=== PATIENT | female | born 1970 | race Two or more races ===

== ENCOUNTER 2017-02-28 12:47 | Emergency (ER) | payer OTHER ==
[~2017-02-28] VITALS: Ht 157.5 cm; Wt 97.5 kg
[2017-02-28 13:40] VITALS: BP 154/88
[2017-02-28] MEDS ORDERED: Morphine Sulfate 4mg/ml Inj IVP ONE (14:00)
[2017-02-28 14:03] LABS: BASOPHILS % (AUTO) 0.8 % (0.0-2.0); EOSINOPHILS % (AUTO) 0.3 % (0.0-3.0); HEMATOCRIT 34.6 % (37.0-47.0); HEMOGLOBIN 10.4 G/DL (12.0-16.0); LYMPHOCYTES % (AUTO) 10.8 % (20.0-45.0); MEAN CORPUSCULAR VOLUME 77 FL (80-99); NEUTROPHILS % (AUTO) 80.1 % (45.0-75.0); PLATELET COUNT 242 K/UL (150-450); RED BLOOD COUNT 4.49 M/UL (4.20-5.40); RED CELL DISTRIBUTION WIDTH 14.9 % (11.6-14.8); WHITE BLOOD COUNT 10.8 K/UL (4.8-10.8)
--- NOTE | 2017-02-28 14:09 | Emergency Room Report ---
History of Present Illness General Chief Complaint: Abdominal Pain Source: Patient, EMS Present Illness HPI Patient presents with severe right upper quadrant pain. This began at 1145 this morning. She states it radiated towards her back. She had vomiting. It was bitter what she was vomiting up. She did not notice any blood. She had this once many weeks ago but did not see a doctor. She was treated with morphine in the field and the pain went from a 10 down to a 4 at this time. She still feels nauseated. She denies any fevers, chest pain, headache, dysuria diarrhea. She ate breakfast this morning which a sandwich and other juices. No fevers, cough, sore throat, dyspnea, rashes, headache, joint pain, dysuria. 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 Now: No Reviewed Nursing Documentation: PMH: Agreed, PSxH: Agreed Nursing Documentation-PMH Past Medical History: No Stated History Review of Systems All Other Systems: negative except mentioned in HPI Physical Exam Vital Signs Date Time Temp Pulse Resp B/P (MAP) Pulse Ox O2 Delivery O2 Flow Rate FiO2 02/28/17 12:33 98.1 75 16 166/96 97 Room Air Sp02 EP Interpretation: reviewed, normal General Appearance: well appearing, no apparent distress, GCS 15 Head: normocephalic Eyes: bilateral eye normal inspection, bilateral eye PERRL, bilateral eye EOMI ENT: moist mucus membranes Neck: supple Respiratory: lungs clear, normal breath sounds Cardiovascular #1: regular rate, rhythm Cardiovascular #2: 2+ radial (R) Gastrointestinal: normal inspection, normal bowel sounds, no mass, non- distended, no rebound, tenderness - Right upper quadrant Musculoskeletal: back normal, gait/station normal, normal range of motion Neurologic: alert, oriented x3, grossly normal Psychiatric: mood/affect normal - anxious due to pain Skin: normal inspection, warm/dry Medical Decision Making Diagnostic Impression: Primary Impression: Biliary colic Additional Impressions: Gall stones Pyuria ER Course Patient presents with severe right upper quadrant pain and vomiting. The character suggest biliary colic. Differential includes peptic ulcer disease, gastritis, gallstones, pancreatitis amongst others. She was evaluated with EKG , chest x-ray and ultrasound of. Labs will be performed. She'll also be given morphine Zofran and Pepcid. EKG without injury. CXR normal. Labs with normal WBC. Slightly elevated ALT and Alk phos. Bili normal. Pyuria. Rocephin given for pyuria. Improved with no pain. Abdomen soft and no guarding. Discussed need for eval and referral by PMD to surgeon. Patient stable for outpatient observation and treatment. Laboratory Tests Test 02/28/17 13:47 02/28/17 14:11 White Blood Count 10.8 K/UL (4.8-10.8) Red Blood Count 4.49 M/UL (4.20-5.40) Hemoglobin 10.4 G/DL (12.0-16.0) L Hematocrit 34.6 % (37.0-47.0) L Mean Corpuscular Volume 77 FL (80-99) L Mean Corpuscular Hemoglobin 23.2 PG (27.0-31.0) L Mean Corpuscular Hemoglobin Concent 30.1 G/DL (32.0-36.0) L Red Cell Distribution Width 14.9 % (11.6-14.8) H Platelet Count 242 K/UL (150-450) Mean Platelet Volume 10.4 FL (6.5-10.1) H Neutrophils (%) (Auto) 80.1 % (45.0-75.0) H Lymphocytes (%) (Auto) 10.8 % (20.0-45.0) L Monocytes (%) (Auto) 8.0 % (1.0-10.0) Eosinophils (%) (Auto) 0.3 % (0.0-3.0) Basophils (%) (Auto) 0.8 % (0.0-2.0) Sodium Level 139 MMOL/L (136-145) Potassium Level 4.0 MMOL/L (3.5-5.1) Chloride Level 103 MMOL/L (98-107) Carbon Dioxide Level 27 MMOL/L (21-32) Anion Gap 9 mmol/L (5-15) Blood Urea Nitrogen 13 mg/dL (7-18) Creatinine 0.6 MG/DL (0.55-1.30) Estimate Glomerular Filtration Rate > 60 mL/min (>60) Glucose Level 99 MG/DL (74-106) Calcium Level 7.8 MG/DL (8.5-10.1) L Total Bilirubin 0.4 MG/DL (0.2-1.0) Aspartate Amino Transferase (AST) 157 U/L (15-37) H Alanine Aminotransferase (ALT) 74 U/L (12-78) Alkaline Phosphatase 118 U/L (46-116) H Total Protein 8.2 G/DL (6.4-8.2) Albumin 3.3 G/DL (3.4-5.0) L Globulin 4.9 g/dL Albumin/Globulin Ratio 0.7 (1.0-2.7) L Lipase 201 U/L (73-393) Urine Color Yellow Urine Appearance Clear Urine pH 7 (4.5-8.0) Urine Specific [place] 1.010 (1.005-1.035) Urine Protein 2+ (NEGATIVE) H Urine Glucose (UA) Negative (NEGATIVE) Urine Ketones Negative (NEGATIVE) Urine Occult Blood Negative (NEGATIVE) Urine Nitrite Negative (NEGATIVE) Urine Bilirubin Negative (NEGATIVE) Urine Urobilinogen 1 MG/DL (0.0-1.0) H Urine Leukocyte Esterase 2+ (NEGATIVE) H Urine RBC 0-2 /HPF (0 - 2) Urine WBC 10-15 /HPF (0 - 2) H Urine Squamous Epithelial Cells Few /LPF (NONE/OCC) Urine Bacteria Few /HPF (NONE) Urine Mucus Few /LPF (NONE/OCC) H EKG Diagnostic Results Rate: normal Rhythm: NSR ST Segments: no acute changes Rhythm Strip Diag. Results EP Interpretation: yes Rhythm: NSR, no PVC's, no ectopy CT/MRI/US Diagnostic Results CT/MRI/US Diagnostic Results : Imaging Test Ordered: u/s abd Impression Multiple gall stones. Gallbladder wall 4 mm, no pericholecystic fluid. CBD 6.8 mm. Neg Meadows's. Last Vital Signs Date Time Temp Pulse Resp B/P (MAP) Pulse Ox O2 Delivery O2 Flow Rate FiO2 02/28/17 17:35 98.1 62 17 168/93 99 Room Air Status: improved Disposition: HOME, SELF-CARE Condition: Improved Scripts Ondansetron Odt* (ZOFRAN ODT*) 4 Mg Tab.rapdis 4 MG ORAL Q8H Y for Nausea & Vomiting, #6 TAB 1 Refill Prov: Graham Hector M.D. 02/28/17 Tramadol Hcl* (ULTRAM*) 50 Mg Tablet 50 MG ORAL Q6H Y for For Pain, #16 TAB 0 Refills Prov: Graham Hector M.D. 02/28/17 Graham Hector M.D. Feb 28, 2017 14:08
[2017-02-28 14:14] LABS: ANION GAP 9 mmol/L (5-15); BLOOD UREA NITROGEN 13 mg/dL (7-18); CALCIUM 7.8 MG/DL (8.5-10.1); CARBON DIOXIDE 27 MMOL/L (21-32); CHLORIDE 103 MMOL/L (98-107); CREATININE 0.6 MG/DL (0.55-1.30); SODIUM 139 MMOL/L (136-145)
[2017-02-28 14:19] LABS: ALANINE AMINOTRANSFERASE 74 U/L (12-78); ALBUMIN 3.3 G/DL (3.4-5.0); ALBUMIN/GLOBULIN RATIO 0.7 (1.0-2.7); ALKALINE PHOSPHATASE 118 U/L (46-116); ASPARTATE AMINO TRANSFERASE 157 U/L (15-37); BILIRUBIN,TOTAL 0.4 MG/DL (0.2-1.0)
[2017-02-28 14:32] LABS: APPEARANCE,URINE CLEAR; BILIRUBIN, URINE NEGATIVE (NEGATIVE); GLUCOSE, URINE (UA) NEGATIVE (NEGATIVE); KETONES,URINE NEGATIVE (NEGATIVE); LEUKOCYTE ESTERASE ,URINE 2+ (NEGATIVE); NITRITE,URINE NEGATIVE (NEGATIVE); PH,URINE 7 (4.5-8.0); PROTEIN,URINE 2+ (NEGATIVE); UROBILINOGEN,URINE 1 MG/DL (0.0-1.0)
[2017-02-28 14:33] LABS: COLOR,URINE YELLOW
[2017-02-28] MEDS ORDERED: cefTRIAXone 1 GM in NS 55 ML IVPB ONE (15:15)
[2017-02-28 16:58] VITALS: BP 173/97
[2017-02-28] MEDS ORDERED: TRAMADOL HCL50 MG ORAL (17:22)
[2017-02-28] MEDS ORDERED: ZOFRAN ODT4 MG ORAL (17:22)
[2017-02-28 17:35] VITALS: BP 168/93
--- NOTE | 2017-03-01 12:01 | Diagnostic Imaging Report ---
Indication: Right upper quadrant pain Technique: ULT ABDOMINAL/COMPLE Comparison: None Findings: Imaged portions of the pancreatic head are unremarkable in appearance. The body and tail are not seen. Liver is normal in size; right lobe measures 15 cm in length. Hepatic contour is smooth. Hepatic echogenicity is homogeneous. No focal hepatic mass lesion is appreciated. Multiple shadowing gallstones are noted within the gallbladder. Gallbladder wall thickening up to 4 mm is noted. There is no pericholecystic fluid. Sonographic Meadows sign was reported as negative. The common bile duct is dilated to 6.8 mm. No choledocholithiasis is seen. Kidneys are symmetric in size. They demonstrate normal parenchymal thickness and echogenicity. There is no hydronephrosis or sonographically appreciable stone. Spleen is unremarkable in size and appearance. There is no ascites. Imaged portions of the IVC and abdominal aorta are normal in caliber. Some portions of the abdominal aorta are not seen due to overlying bowel gas. Impression: Cholelithiasis with mild gallbladder wall thickening and positive sonographic Meadows sign. No pericholecystic fluid. Findings are equivocal for acute cholecystitis. Correlate clinically. Consider HIDA scan as clinically indicated. Borderline dilated CBD of 6.8 mm. No discrete choledocholithiasis seen.
--- NOTE | 2017-03-01 16:11 | Cardiology Report ---
APPROVED REPORT EKG Measurement Heart [id number] HI [id number] Normal sinus rhythm Normal ECG
== END 2017-02-28 17:30 | disposition home or self-care (01) ==
LOC: EDBD 12:47 → EMR 14:10
DX: K80.80 Other cholelithiasis without obstruction (principal); K80.50 Calculus of bile duct without cholangitis or cholecystitis without obstruction; N39.0 Urinary tract infection, site not specified
CPT/HCPCS: 36415; 76700; 80053; 81003; 83690; 85025; 87086; 93005; 96361; 96365; 96375; 99284; J0696; J2270; J2405; S0028